=== PATIENT | male | born 1950 | race African-American/Black ===

== ENCOUNTER 2016-11-12 20:36 | Inpatient (IN) | payer OTHER ==
[2016-11-12 21:42] VITALS: BMI 23.3
--- NOTE | 2016-11-12 22:14 | HP ---
COWS - Scale Resting Pulse: 0= [place] 80 or Below Sweatin=Flushed/Facial Moisture Restless Observation: 5= Unable to Sit Still Pupil Size: 2= Moderately Dilated Bone or Joint Aches: 4=Acute Joint/Muscle Pain Runny Nose/ Eye Tearin= Runny Nose/Eyes GI Upset > 30mins: 2= Nausea/Diarrhea Tremor Observation: 4= Gross Tremor/Twitching Yawning Observation: 1= 1-2x During Session Anxiety or Irritability: 2=Irritable/Anxious Goose Flesh Skin: 0=Smooth Skin COWS Score: 24 CIWA Score - CIWA Score Nausea/Vomitin Muscle Tremors: 4-Moderate,w/Arms Extend Anxiety: 4-Mod. Anxious/Guarded Agitation: 4-Moderately Restless Paroxysmal Sweats: 3 Orientation: 0-Oriented Tacttile Disturbances: 0-None Auditory Disturbances: 0-None Visual Disturbances: 0-None Headache: 0-None Present CIWA-Ar Total Score: 17 Admission ROS BHS - HPI Chief Complaint: SEEKING DETOX TXMENT FOR HEROIN AND ALCOHOL DEPENDENCE Allergies/Adverse Reactions: Allergies Allergy/AdvReac Type Severity Reaction Status Date / Time No Known Allergies Allergy Verified 11/12/16 22:08 History of Present Illness: 66 Y.O. MALE WITH ALCOHOLISM/ OPIOID DEPENDENCE ADMITTED FOR DETOX TXMENT. REPORTS LAST DETOX A MONTH AGO. THIS IS HIS FIRST ADMISSION HERE. REFERRED BY [facility]. REPORTS LONGEST CLEAN TIME IN THE PAST WAS 14 YEARS. Exam Limitations: Physical Impairment (AMBULATED WITH SHUFFLED GAIT) - Ebola screening Have you traveled outside of the country in the last 21 days: No (N) Have you had contact with anyone from an Ebola affected area: No Have you been sick,other than usual withdrawal symptoms: No Do you have a fever: No - Review of Systems Constitutional: Chills, Malaise, Night Sweats, Changes in sleep EENT: reports: Nose Congestion Respiratory: reports: No Symptoms reported Cardiac: reports: No Symptoms Reported GI: reports: Diarrhea, Abdominal cramping : reports: No Symptoms Reported Musculoskeletal: reports: Back Pain, Joint Pain, Neck Pain Integumentary: reports: No Symptoms Reported Neuro: reports: No Symptoms reported Endocrine: reports: No Symptoms Reported Hematology: reports: No Symptoms Reported Psychiatric: reports: Anxious Other Systems: Reviewed and Negative Patient History - Patient Medical History Hx Anemia: No Hx Asthma: No Hx Chronic Obstructive Pulmonary Disease (COPD): No Hx Cancer: No Hx Cardiac Disorders: No Hx Congestive Heart Failure: No Hx Hypertension: Yes (NO MEDS) Hx Hypercholesterolemia: No Hx Pacemaker: No HX Cerebrovascular Accident: No Hx Seizures: No Hx Dementia: No Hx Diabetes: No Hx Gastrointestinal Disorders: No Hx Liver Disease: No Hx Genitourinary Disorders: No Hx Sexually Transmitted Disorders: No Hx Renal Disease (ESRD): No Hx Thyroid Disease: No Hx Human Immunodeficiency Virus (HIV): No Hx Hepatitis C: No Hx Depression: No Hx Suicide Attempt: No Hx Bipolar Disorder: No Hx Schizophrenia: No Other Medical History: DENIES - Patient Surgical History Past Surgical History: Yes Hx Orthopedic Surgery: Yes (L HIP REPLACEMENT/ R LEG FEMUR FX) Hx Hysterectomy: No Anesthesia Reaction: No - PPD History Previous Implant?: Yes Documented Results: Negative w/proof Implanted On Prior [facility] Admission?: No PPD to be Administered?: Yes - Smoking Cessation Smoking history: Current every day smoker Have you smoked in the past 12 months: Yes Aproximately how many cigarettes per day: 10 Cigars Per Day: 0 Hx Chewing Tobacco Use: No Initiated information on smoking cessation: Yes 'Breaking Loose' booklet given: 11/12/16 - Substance & Tx. History Hx Alcohol Use: Yes Hx Substance Use: Yes Substance Use Type: Alcohol, Heroin Hx Substance Use Treatment: Yes ([facility]) - Substances Abused BEER Route: Oral Frequency: Daily Amount used: 6 PACK Age of first use: 20 Date of Last Use: 11/11/16 HEROIN Route: Inhalation Frequency: Daily Amount used: 9 BAGS Age of first use: 17 Date of Last Use: 11/11/16 Family Disease History - Family Disease History Family History: Denies Admission Physical Exam BHS - Vital Signs Vital Signs: Vital Signs - 24 hr 11/12/16 21:39 Temperature 96 F L Pulse Rate 54 L Respiratory 16 Rate Blood Pressure 178/93 - Physical General Appearance: Yes: Disheveled, Mild Distress, Tremorous HEENTM: Yes: EOMI, Normocephalic, Normal Voice, COURTNEY, Pharynx Normal, Rhinorrhea Respiratory: Yes: Chest Non-Tender, Lungs Clear, Normal Breath Sounds, No Respiratory Distress, No Accessory Muscle Use Neck: Yes: No masses,lesions,Nodules, Supple, Trachea in good position Breast: Yes: Breast Exam Deferred Cardiology: Yes: Regular Rhythm, S1, S2, Bradycardia Abdominal: Yes: Normal Bowel Sounds, Non Tender, Soft, Protuberent Genitourinary: Yes: Within Normal Limits Back: Yes: Normal Inspection Musculoskeletal: Yes: Back pain, Other (AMBUALTES WITH CANE AND SHUFFLED WALK) Extremities: Yes: Non-Tender, Tremors Neurological: Yes: Fully Oriented, Alert Integumentary: Yes: Dry, Warm, Other (VASCULAR CHANGES WITH HYPERPIGMENTATION AND DRYNESS NOTED TO BLE) Lymphatic: Yes: Within Normal Limits - Diagnostic (1) Alcohol dependence with uncomplicated withdrawal Current Visit: Yes Status: Chronic (2) Opioid dependence with withdrawal Current Visit: Yes Status: Chronic (3) HTN (hypertension) Current Visit: Yes Status: Chronic Qualifiers: Hypertension type: essential hypertension Qualified Code(s): I10 - Essential (primary) hypertension (4) Nicotine dependence Current Visit: Yes Status: Chronic Qualifiers: Nicotine product type: cigarettes Substance use status: uncomplicated Qualified Code(s): F17.210 - Nicotine dependence, cigarettes, uncomplicated (5) PVD (peripheral vascular disease) Current Visit: Yes Status: Chronic Cleared for Admission [facility] - Detox or Rehab [facility] Level of Care: Medically Managed Detox Regimen/Protocol: Methadone/Librium [facility] Breath Alcohol Content Breath Alcohol Content: 0 Urine Drug Screen - Results Drug Screen Negative: No Urine Drug Screen Results: OPI-Opiates, BZO-Benzodiazepines
[2016-11-12] MEDS ORDERED: chlordiazePOXIDE HCL 25 MG CAPSULE PO PRN (22:27)
[2016-11-12] MEDS ORDERED: MENTHOL/PHENOL 1 EACH UD MM PRN (22:27)
[2016-11-12] MEDS ORDERED: LOPERAMIDE HCL 2 MG CAPSULE PO PRN (22:27)
[2016-11-12] MEDS ORDERED: MAG HYDROX/AL HYDROX/SIMETH 30 ML UNIT-DOSE CUP PO PRN (22:27)
[2016-11-12] MEDS ORDERED: guaiFENesin/D-METHORPHAN HB 10 ML UNIT-DOSE CUPS PO PRN (22:27)
[2016-11-12] MEDS ORDERED: diphenhydrAMINE HCL 50 MG CAPSULE PO PRN (22:27)
[2016-11-12] MEDS ORDERED: MAGNESIUM CITRATE 300 ML BOTTLE PO PRN (22:27)
[2016-11-12] MEDS ORDERED: MAGNESIUM HYDROX 2400MG/30ML ORAL SUSPENSION 30 ML CUP PO PRN (22:27)
[2016-11-12] MEDS ORDERED: IBUPROFEN 400 MG TABLET (FP) PO PRN (22:27)
[2016-11-12] MEDS ORDERED: METHADONE HCL 10 MG TABLET (FOR DETOX USE ONLY) PO ONE ×2 (22:27→23:00)
[2016-11-12] MEDS ORDERED: ACETAMINOPHEN 325 MG TABLET (FP) PO PRN (22:27)
[2016-11-12] MEDS ORDERED: NICOTINE POLACRILEX 2 MG GUM BC PRN (22:27)
[2016-11-12] MEDS ORDERED: P-EPHED 60MG/TRIPROLIDI 2.5MG TABLET PO PRN (22:27)
[2016-11-12] MEDS: chlordiazePOXIDE HCL 25 MG CAPSULE PO SCH (23:20)
[2016-11-12 23:32] LABS: URINE APPEARANCE CLEAR; URINE BILIRUBIN NEGATIVE (NEGATIVE); URINE BLOOD NEGATIVE (NEGATIVE); URINE COLOR STRAW; URINE GLUCOSE (UA) NEGATIVE (NEGATIVE); URINE KETONE NEGATIVE (NEGATIVE); URINE LEUK ESTERASE NEGATIVE (NEGATIVE); URINE NITRITE NEGATIVE (NEGATIVE); URINE PROTEIN NEGATIVE (NEGATIVE); URINE UROBILINOGEN NEGATIVE E.U./dl (0.2-1.0)
[2016-11-13] MEDS: chlordiazePOXIDE HCL 25 MG CAPSULE PO SCH ×4 (05:49→22:15)
[2016-11-13] MEDS ORDERED: NICOTINE 14 MG/24 HOURS TOPICAL PATCH TD SCH (10:00)
[2016-11-13] MEDS ORDERED: PRENATAL VITAMINS W/ FOLIC ACID TABLET (FP) PO SCH (10:00)
[2016-11-13] MEDS ORDERED: METHADONE HCL 10 MG TABLET (FOR DETOX USE ONLY) PO SCH (10:00)
[2016-11-13 10:14] LABS: MCHC 32.5 g/dl (32.0-35.9); MEAN CELL VOLUME 86.4 fl (80-96); MEAN PLT VOLUME 8.5 fl (7.5-11.1); PLATELET COUNT 128 K/MM3 (134-434); RDW 19.6 % (11.9-15.9); WHITE BLOOD COUNT 4.3 K/mm3 (4.0-10.0)
[2016-11-13 10:42] LABS: ALBUMIN 2.6 g/dl (3.4-5.0); ALK PHOS 135 U/L (45-117); ANION GAP 8 (8-16); BILIRUBIN,TOTAL 0.7 mg/dL (0.2-1.0); CALCIUM 7.9 mg/dL (8.5-10.1); CO2 28 mmol/L (21-32); COCKROFT - GAULT 86.71; CREATININE 0.9 mg/dL (0.7-1.3); GLUCOSE,RANDOM 70 mg/dL (74-106); SGOT/AST 81 U/L (15-37); SGPT/ALT 40 U/L (12-78); TOT PROT 8.1 g/dl (6.4-8.2)
[2016-11-13] MEDS ORDERED: POTASSIUM CHLORIDE TABS 20 MEQ TABLET.ER (FP) PO ONE (11:34)
--- NOTE | 2016-11-13 11:35 | PN ---
[facility] CIWA - CIWA Score Nausea/Vomitin-No Nausea/No Vomiting Muscle Tremors: 4-Moderate,w/Arms Extend Anxiety: 4-Mod. Anxious/Guarded Agitation: 4-Moderately Restless Paroxysmal Sweats: 1-Minimal Palms Moist Orientation: 0-Oriented Tacttile Disturbances: 3-Moderate Itch/Numb/Burn Auditory Disturbances: 0-None Visual Disturbances: 0-None Headache: 0-None Present CIWA-Ar Total Score: 16 S COWS - Scale Resting Pulse: 0= [place] 80 or Below Sweatin= Chills/Flushing Restless Observation: 3= Extraneous Movement Pupil Size: 2= Moderately Dilated Bone or Joint Aches: 4=Acute Joint/Muscle Pain Runny Nose/ Eye Tearin= Nasal Congestion GI Upset > 30mins: 1= Stomach Cramp Tremor Observation of Outstretched Hands: 2= Slight Tremor Visible Yawning Observation: 1= 1-2x During Session Anxiety or Irritability: 2=Irritable/Anxious Goose Flesh Skin: 0=Smooth Skin COWS Score: 17 S Progress Note (SOAP) Subjective: ANXIETY,SLIGHT TREMORS,SLUGGISH ON AMBULATION. MEDS EFFECTIVE. WALKS WITH WALKER. Objective: 11/13/16 11:32 Vital Signs Temperature 96.8 F L 11/13/16 09:29 Pulse Rate 54 L 11/13/16 09:29 Respiratory Rate 18 11/13/16 09:29 Blood Pressure 131/87 11/13/16 09:29 O2 Sat by Pulse Oximetry (%) Laboratory Last Values WBC 4.3 K/mm3 (4.0-10.0) 11/13/16 07:00 RBC 4.85 M/mm3 (4.00-5.60) 11/13/16 07:00 Hgb 13.6 GM/dL (11.7-16.9) 11/13/16 07:00 Hct 41.9 % (35.4-49) 11/13/16 07:00 MCV 86.4 fl (80-96) 11/13/16 07:00 MCHC 32.5 g/dl (32.0-35.9) 11/13/16 07:00 RDW 19.6 % (11.9-15.9) H 11/13/16 07:00 Plt Count 128 K/MM3 (134-434) L 11/13/16 07:00 MPV 8.5 fl (7.5-11.1) 11/13/16 07:00 Sodium 141 mmol/L (136-145) 11/13/16 07:00 Potassium 3.1 mmol/L (3.5-5.1) L 11/13/16 07:00 Chloride 105 mmol/L (98-107) 11/13/16 07:00 Carbon Dioxide 28 mmol/L (21-32) 11/13/16 07:00 Anion Gap 8 (8-16) 11/13/16 07:00 BUN 16 mg/dL (7-18) 11/13/16 07:00 Creatinine 0.9 mg/dL (0.7-1.3) 11/13/16 07:00 Creat Clearance w eGFR > 60 (>60) 11/13/16 07:00 Random Glucose 70 mg/dL (74-106) L 11/13/16 07:00 Calcium 7.9 mg/dL (8.5-10.1) L 11/13/16 07:00 Total Bilirubin 0.7 mg/dL (0.2-1.0) 11/13/16 07:00 AST 81 U/L (15-37) H 11/13/16 07:00 ALT 40 U/L (12-78) 11/13/16 07:00 Alkaline Phosphatase 135 U/L (45-117) H 11/13/16 07:00 Total Protein 8.1 g/dl (6.4-8.2) 11/13/16 07:00 Albumin 2.6 g/dl (3.4-5.0) L 11/13/16 07:00 Urine Color Straw 11/12/16 23:13 Urine Appearance Clear 11/12/16 23:13 Urine pH 8.0 (5.0-8.0) 11/12/16 23:13 Ur Specific [place] 1.015 (1.005-1.025) 11/12/16 23:13 Urine Protein Negative (NEGATIVE) 11/12/16 23:13 Urine Glucose (UA) Negative (NEGATIVE) 11/12/16 23:13 Urine Ketones Negative (NEGATIVE) 11/12/16 23:13 Urine Blood Negative (NEGATIVE) 11/12/16 23:13 Urine Nitrite Negative (NEGATIVE) 11/12/16 23:13 Urine Bilirubin Negative (NEGATIVE) 11/12/16 23:13 Urine Urobilinogen Negative E.U./dl (0.2-1.0) 11/12/16 23:13 Ur Leukocyte Esterase Negative (NEGATIVE) 11/12/16 23:13 Assessment: 11/13/16 11:33 WITHDRAWAL SX HYPOKALEMIA Plan: CONTINUE DETOX KDUR 20 MEQ PO BID
--- NOTE | 2016-11-13 12:00 | EKG ---
Test Reason : Blood Pressure : / mmHG Vent. Rate : 044 BPM Atrial Rate : 044 BPM P-R Int : 150 ms QRS Dur : 094 ms QT Int : 500 ms P-R-T Axes : 049 -43 020 degrees QTc Int : 427 ms MARKED SINUS BRADYCARDIA POSSIBLE LEFT ATRIAL ENLARGEMENT LEFT AXIS DEVIATION LEFT VENTRICULAR HYPERTROPHY CANNOT RULE OUT SEPTAL INFARCT , AGE UNDETERMINED ABNORMAL ECG NO PREVIOUS ECGS AVAILABLE Confirmed by IRIS YATES, KIRBY ([id number]) on 11/13/2016 11:59:44 AM Referred By: Confirmed By:KIRBY SIMMONS MD
[2016-11-13] MEDS ORDERED: POTASSIUM CHLORIDE TABS 20 MEQ TABLET.ER (FP) PO SCH (22:00)
[2016-11-13] MEDS ORDERED: THIAMINE HCL 100 MG TABLET (FP) PO SCH (22:00)
[2016-11-14] MEDS: chlordiazePOXIDE HCL 25 MG CAPSULE PO SCH (06:22)
[2016-11-14 06:34] VITALS: BP 139/85; PULSE 86; TEMP 97.2
[2016-11-14] MEDS ORDERED: METHADONE HCL 5 MG TABLET (FOR DETOX USE ONLY) PO SCH (10:00)
--- NOTE | 2016-11-14 10:31 | DS ---
[facility] Detox Discharge Summary Admission Date: 11/12/16 Discharge Date: 11/14/16 - History Present History: Alcohol Dependence, Opioid Dependence Additional Comments: PT DECLINED TO CONTINUE WITH DETOX,STATING "I HAVE TH[place] TO TAKE CARE OF [place]". PT REMINDED THE NEED FOR TREATMENT. ALERT O X 3. NAD. Pertinent Past History: HTN PVD - Physical Exam Results Vital Signs: Vital Signs Temperature 97.2 F L 11/14/16 06:33 Pulse Rate 86 11/14/16 06:33 Respiratory Rate 16 11/14/16 06:33 Blood Pressure 139/85 11/14/16 06:33 O2 Sat by Pulse Oximetry (%) Pertinent Admission Physical Exam Findings: WITHDRAWAL SX - Treatment Hospital Course: Discharged Condition Good - Medication Discharge Medications: Ambulatory Orders NK [No Known Home Medication] 11/12/16 - Diagnosis (1) Alcohol dependence with uncomplicated withdrawal Status: Acute (2) HTN (hypertension) Status: Chronic Qualifiers: Hypertension type: essential hypertension Qualified Code(s): I10 - Essential (primary) hypertension (3) Nicotine dependence Status: Acute Qualifiers: Nicotine product type: cigarettes Substance use status: in withdrawal Qualified Code(s): F17.213 - Nicotine dependence, cigarettes, with withdrawal (4) Opioid dependence with withdrawal Status: Chronic (5) PVD (peripheral vascular disease) Status: Chronic - AMA Did Patient Leave Against Medical Advice: Yes (AMA)
[2016-11-14] MEDS ORDERED: chlordiazePOXIDE 5 MG CAPSULE PO SCH (23:00)
[2016-11-15] MEDS ORDERED: chlordiazePOXIDE HCL 10 MG CAPSULE PO SCH (23:00)
[2016-11-16] MEDS ORDERED: METHADONE HCL 10 MG TABLET (FOR DETOX USE ONLY) PO SCH (10:00)
[2016-11-17] MEDS ORDERED: METHADONE HCL 5 MG TABLET (FOR DETOX USE ONLY) PO SCH (06:00)
== END 2016-11-14 09:44 | disposition left against medical advice (07) | DRG 770 ==
LOC: YASAS 20:36 → Y3N 22:33
PROVIDERS: ADMIT Internal Medicine; ATTEND Internal Medicine
PROC: HZ2ZZZZ Detoxification Services for Substance Abuse Treatment (ICD-10-PCS; principal; 2016-11-14)
DX: F11.23 Opioid dependence with withdrawal (principal); F10.230 Alcohol dependence with withdrawal, uncomplicated; F17.213 Nicotine dependence, cigarettes, with withdrawal; I10 Essential (primary) hypertension; I73.9 Peripheral vascular disease, unspecified
CPT/HCPCS: 36415; 80053; 81003; 85027; 86593; 93005; 93010